=== PATIENT | male | born 1985 | race Caucasian/White ===

== ENCOUNTER 2020-09-26 14:08 | Inpatient (IN) | payer OTHER ==
[2020-09-26] MEDS ORDERED: METHOCARBAMOL 500 MG TABLET PO PRN (15:28)
[2020-09-26] MEDS ORDERED: chlordiazePOXIDE HCL 25 MG CAPSULE PO PRN (15:28)
[2020-09-26] MEDS ORDERED: BISMUTH SUBSALICYLATE 524 MG/30 ML UD PO PRN (15:28)
[2020-09-26] MEDS ORDERED: MENTHOL/PHENOL 1 EACH UD MM PRN (15:28)
[2020-09-26] MEDS ORDERED: MAG HYDROX/AL HYDROX/SIMETH 30 ML UNIT-DOSE CUP PO PRN (15:28)
[2020-09-26] MEDS ORDERED: ONDANSETRON *ODT* 4 MG TABLET SL PRN (15:28)
[2020-09-26] MEDS ORDERED: ACETAMINOPHEN 325 MG TABLET (FP) PO PRN (15:28)
[2020-09-26] MEDS ORDERED: MAGNESIUM CITRATE 300 ML BOTTLE PO PRN (15:28)
[2020-09-26] MEDS ORDERED: MAGNESIUM HYDROX 2400MG/30ML ORAL SUSPENSION 30 ML CUP PO PRN (15:28)
[2020-09-26 15:47] VITALS: BMI 33.6
[2020-09-26] MEDS: hydrOXYzine PAMOATE 25 MG CAPSULE (FP) PO SCH ×2 (17:28→22:08)
[2020-09-26] MEDS: chlordiazePOXIDE HCL 25 MG CAPSULE PO SCH ×2 (17:28→22:08)
[2020-09-26] MEDS: CEPHALEXIN MONOHYDRATE 500 MG CAPSULE (UD) PO SCH ×2 (17:29→23:08)
[2020-09-26] MEDS: BACITRACIN 0.9 GM PACKET TP SCH (22:08)
[2020-09-26] MEDS: THIAMINE HCL 100 MG TABLET (FP) PO SCH (22:08)
[2020-09-26] MEDS: MELATONIN 5 MG TABLETS PO SCH (22:09)
[2020-09-26] MEDS: BENZOCAINE 20 % GEL TUBE MM PRN (22:12)
[2020-09-26] MEDS: IBUPROFEN 400 MG TABLET (FP) PO PRN (22:47)
[2020-09-27] MEDS: chlordiazePOXIDE HCL 25 MG CAPSULE PO SCH ×4 (05:41→22:21)
[2020-09-27] MEDS: hydrOXYzine PAMOATE 25 MG CAPSULE (FP) PO SCH ×5 (05:41→22:21)
[2020-09-27] MEDS: CEPHALEXIN MONOHYDRATE 500 MG CAPSULE (UD) PO SCH ×4 (05:42→23:12)
[2020-09-27] MEDS: BACITRACIN 0.9 GM PACKET TP SCH ×2 (10:27→22:21)
[2020-09-27] MEDS: PRENATAL VITAMINS W/ FOLIC ACID TABLET (FP) PO SCH (10:27)
[2020-09-27] MEDS: NICOTINE 21 MG/24 HOURS TOPICAL PATCH TD SCH (11:20)
[2020-09-27 11:30] LABS: POTASSIUM 3.9 mmol/L (3.5-5.1)
[2020-09-27 11:31] LABS: URINE APPEARANCE CLOUDY; URINE BILIRUBIN NEGATIVE (NEGATIVE); URINE COLOR YELLOW; URINE GLUCOSE (UA) NEGATIVE (NEGATIVE); URINE KETONE TRACE (NEGATIVE); URINE LEUK ESTERASE NEGATIVE (NEGATIVE); URINE NITRITE NEGATIVE (NEGATIVE); URINE PROTEIN NEGATIVE (NEGATIVE)
[2020-09-27 11:32] LABS: CALCIUM 8.8 mg/dL (8.5-10.1); HEMATOCRIT 40.9 % (35.4-49); HEMOGLOBIN 13.8 GM/dL (11.7-16.9); MCH 31.3 pg (25.7-33.7); MCHC 33.7 g/dl (32.0-35.9); MEAN CELL VOLUME 92.8 fl (80-96); MEAN PLT VOLUME 8.1 fl (7.5-11.1); PLATELET COUNT 231 K/MM3 (134-434); RBC 4.41 M/mm3 (4.00-5.60); RDW 13.4 % (11.9-15.9); WHITE BLOOD COUNT 7.4 K/mm3 (4.0-10.0)
[2020-09-27 11:33] LABS: ALBUMIN 3.5 g/dl (3.4-5.0)
[2020-09-27 11:37] LABS: BILIRUBIN,TOTAL 0.6 mg/dL (0.2-1); TOT PROT 6.4 g/dl (6.4-8.2)
[2020-09-27] MEDS: NICOTINE POLACRILEX 2 MG GUM BUC PRN ×2 (13:48→16:21)
[2020-09-27] MEDS: BENZOCAINE 20 % GEL TUBE MM PRN (20:25)
[2020-09-27] MEDS: THIAMINE HCL 100 MG TABLET (FP) PO SCH (22:21)
[2020-09-27] MEDS: MELATONIN 5 MG TABLETS PO SCH (22:21)
[2020-09-28] MEDS: hydrOXYzine PAMOATE 25 MG CAPSULE (FP) PO SCH ×4 (05:36→17:12)
[2020-09-28] MEDS: chlordiazePOXIDE HCL 25 MG CAPSULE PO SCH ×3 (05:36→17:12)
[2020-09-28] MEDS: CEPHALEXIN MONOHYDRATE 500 MG CAPSULE (UD) PO SCH ×3 (05:36→17:12)
[2020-09-28] MEDS: BENZOCAINE 20 % GEL TUBE MM PRN ×2 (05:55→12:46)
[2020-09-28] MEDS: ACETAMINOPHEN 325 MG TABLET (FP) PO PRN ×2 (08:27→15:29)
[2020-09-28] MEDS: NICOTINE POLACRILEX 2 MG GUM BUC PRN (08:39)
[2020-09-28] MEDS: BACITRACIN 0.9 GM PACKET TP SCH (10:07)
[2020-09-28] MEDS: PRENATAL VITAMINS W/ FOLIC ACID TABLET (FP) PO SCH (10:07)
[2020-09-28] MEDS: NICOTINE 21 MG/24 HOURS TOPICAL PATCH TD SCH (10:08)
[2020-09-28] MEDS ORDERED: CHLORHEXIDINE GLUCONATE 118 ML MOUTHWASH MM SCH (10:30)
[2020-09-28] MEDS: IBUPROFEN 400 MG TABLET (FP) PO PRN (12:44)
[2020-09-28] MEDS ORDERED: LIDOCAINE VISCOUS 2% ORAL/TOP 20 ML UNIT-DOSE CUP MM SCH (14:00)
[2020-09-28 17:32] VITALS: BP 120/86; PULSE 96; TEMP 97.8
[2020-09-28] MEDS ORDERED: IBUPROFEN 600 MG TABLET (FP) PO PRN (18:00)
[2020-09-28] MEDS ORDERED: traZODone HCL 50 MG TABLET (FP) PO SCH (22:00)
[2020-09-28] MEDS ORDERED: QUEtiapine FUMARATE 50 MG TABLET PO SCH (22:00)
[2020-09-28] MEDS ORDERED: LITHIUM CARBONATE 300 MG CAPSULE (FP) PO SCH (22:00)
[2020-09-29] MEDS ORDERED: chlordiazePOXIDE HCL 10 MG CAPSULE PO PRN
[2020-09-29] MEDS ORDERED: chlordiazePOXIDE HCL 10 MG CAPSULE PO SCH (05:00)
[2020-09-29] MEDS ORDERED: GABAPENTIN 300 MG CAPSULE PO SCH (10:00)
[2020-09-30] MEDS ORDERED: chlordiazePOXIDE HCL 10 MG CAPSULE PO SCH (05:00)
[2020-10-01] MEDS ORDERED: chlordiazePOXIDE HCL 10 MG CAPSULE PO ONE (05:00)
== END 2020-09-28 18:55 | disposition left against medical advice (07) | DRG 770 ==
LOC: YASAS 14:08 → Y3N 15:45
PROVIDERS: ADMIT Allergy & Immunology; ATTEND Allergy & Immunology
PROC: HZ2ZZZZ Detoxification Services for Substance Abuse Treatment (ICD-10-PCS; principal; 2020-09-26)
DX: F14.20 Cocaine dependence, uncomplicated (principal); F17.210 Nicotine dependence, cigarettes, uncomplicated; F31.9 Bipolar disorder, unspecified; G47.00 Insomnia, unspecified
CPT/HCPCS: 36415; 80053; 80178; 81003; 85027; 86780; 93005; 93010; C9803; U0003